=== PATIENT | male | born 1980 ===

== ENCOUNTER 2024-04-13 13:41 | Outpatient (CLI) | payer OTHER ==
--- NOTE | 2024-04-13 15:46 | MRI Report ---
PROCEDURE: Foot LT WO INDICATIONS: L FOOT PAIN TECHNIQUE: Noncontrast sagittal T1 spin echo and T2 fast spin echo with fat saturation, long-axis T1 spin echo a nd T2 fast spin echo with fat saturation, short-axis proton density fast spin echo and T2 fast spin e cho with fat saturation through the forefoot. COMPARISON: None. FINDINGS: Image quality: Excellent. Bones and joints: No bone marrow contusions or metatarsal stress fractures. The sesamoid bones appe ar in expected positions, without internal edema. No metatarsophalangeal joint degeneration. No int raosseous lesions. Soft tissues: The visualized plantar foot muscles demonstrate normal signal and bulk. Visualized fl exor and extensor tendons appear intact, without tenosynovitis. There is suggestion of a tiny ganglio n cyst over medial periphery of first metatarsal head and measures 5 x 5 x 6 mm in size. No intermeta tarsal bursal fluid. Possible tiny ganglion cyst measures 5 mm in size over dorsal aspect of fourth T MT joint is also seen. Sagittal images demonstrate no evidence for plantar plate tears. Principal Li sfranc ligament is intact. IMPRESSION: 1. No marrow edema. No fracture or dislocation. No metatarsal stress fractures. 2. Suggestion of tiny ganglion cysts adjacent to medial aspect of first metatarsal head and over dors al aspect of fourth TMT joint as described above. No soft tissue mass or drainable fluid collection. 3. Tendons and ligaments of the midfoot and forefoot are grossly intact. Reviewed by: Jasvir Sadler MD on 04/13/2024 3:44 PM PDT Approved by: Jasvir Sadler MD on 04/13/2024 3:44 PM PDT Station ID: [id number]
== END 2024-04-13 13:42 | disposition home or self-care (01) ==
LOC: DI 13:41
PROVIDERS: ATTEND General Practice
DX: M79.672 Pain in left foot (principal)